=== PATIENT | female | born 1960 | race Caucasian/White ===

== ENCOUNTER 2021-12-10 11:42 | Emergency (ER) | payer BC ==
[~2021-12-10] VITALS: Ht 170.2 cm; Wt 122.7 kg
[2021-12-10 11:49] VITALS: TEMP 98.4
[2021-12-10 12:43] VITALS: BP 131/73; PULSE 83
== END 2021-12-10 12:43 | disposition home or self-care (01) ==
LOC: COL.ER 11:42
DX: T78.1XXA Other adverse food reactions, not elsewhere classified, initial encounter (principal); I10 Essential (primary) hypertension; E11.9 Type 2 diabetes mellitus without complications

== ENCOUNTER 2023-11-16 09:55 | Emergency (ER) | payer SELFPAY ==
[~2023-11-16] VITALS: Ht 170.2 cm; Wt 133.6 kg
[2023-11-16 11:13] VITALS: BP 134/72; PULSE 80; TEMP 97.9
== END 2023-11-16 11:13 | disposition home or self-care (01) ==
LOC: COL.ER 09:55
DX: S43.402A Unspecified sprain of left shoulder joint, initial encounter (principal); X50.1XXA Overexertion from prolonged static or awkward postures, initial encounter; W20.8XXA Other cause of strike by thrown, projected or falling object, initial encounter

== ENCOUNTER → 2024-03-31 | Outpatient (CLI) | payer OTHER ==
[~2024-03-31] MED LIST: GLUCOPHAGE500 MG/TAB PO; GLUCOSAMIN 500 PO; LIPITOR20 MG PO; MOUNJARO2.5 MG/0.5 SQ; NORCO 325 MG-51 TAB PO; PRILOSEC 20MG20 MG PO; PRINIVIL10 MG PO; QUALITY CHOIC0.52 GM PO
== END ==
LOC: COL.RAD 08:15 → COL.CARD 09:00
DX: Z01.818 Encounter for other preprocedural examination (principal); M75.102 Unspecified rotator cuff tear or rupture of left shoulder, not specified as traumatic